=== PATIENT | female | born 1940 | race Caucasian/White ===

== ENCOUNTER 2019-08-06 21:27 | Inpatient (IN) ==
[2019-08-06 21:58] LABS: BASO# 0.01 X1000 (0.0-0.2); BASO% 0.1 % (0.0-0.8); EOS% 1.4 % (0.0-10.0); HEMATOCRIT 44.6 % (37.0-47.0); LYMPH# 1.82 X1000 (1.2-3.4); LYMPH% 25.2 % (20.5-51.1); MCH 30.9 PG (27-31); MCHC 31.4 g/dL (33-37); MCV 98.5 FL (81-99); MONO# 0.73 X1000 (0.11-0.59); MONO% 10.1 % (1.7-9.3); MPV 9.1 FL (7.4-10.4); NEUT# 4.56 X1000 (1.4-6.5); NEUT% 63.2 % (42.2-75.2); PLT 259 X1000 (130-400); RBC 4.53 XMIL (4.2-5.4); RDW 12.1 % (11.5-14.5); WBC 7.22 X1000 (4.8-10.8)
[2019-08-06 22:15] LABS: AGAP 12; ALB/GLOB RATIO 1.3; ALBUMIN 4.4 g/dL (3.5-5.0); ALKALINE PHOSPHATASE 87 U/L (32-104); AMYLASE 68 U/L (20-200); BUN 11 mg/dL (8-22); CALCIUM 10.2 mg/dL (8.8-10.2); CHLORIDE 98 mmol/L (98-107); COSMO 275; CREATININE 0.7 mg/dL (0.5-0.9); ESTIMATED GFR > 60; GLUCOSE 134 mg/dL (70-104); GOT 23 U/L (10-30); GPT 13 U/L (10-36); LIPASE 20 U/L (13-60); POTASSIUM 4.2 mmol/L (3.5-5.1); SODIUM 137 mmol/L (136-145); TCO2 27 mmol/L (25-35); TOTAL BILIRUBIN 0.34 mg/dL (0.20-1.00); TOTAL PROTEIN 7.8 g/dL (6.3-8.3)
[2019-08-06] MEDS ORDERED: NS 1,000 ML IV ONE (22:35)
[2019-08-06] MEDS ORDERED: ZOFRAN IV ONE (22:36)
[2019-08-06] MEDS ORDERED: MORPHINE IV ONE (22:36)
[2019-08-06 23:01] LABS: URINE SOURCE CLEAN CATCH
[2019-08-06 23:19] LABS: BILIRUBIN URINE NEGATIVE (NEGATIVE); BLOOD URINE NEGATIVE (NEGATIVE); COLOR YELLOW; GLUCOSE URINE NEGATIVE (NEGATIVE); KETONE URINE TRACE mg/dL (NEGATIVE); LEUKOCYTES URINE MODERATE (NEGATIVE); NITRITE URINE POSITIVE (NEGATIVE); PH URINE 7.5; PROTEIN URINE NEGATIVE (NEGATIVE); SP GRAVITY URINE 1.012; TURBIDITY URINE HAZY (CLEAR); UR EPITHELIAL CELLS <10 /HPF (<10); URINE BACTERIA 4+ /HPF; URINE RBC <10 /HPF (<10); URINE WBC <10 /HPF (<10); UROBILINOGEN URINE NORMAL (NORMAL)
[2019-08-07] MEDS ORDERED: MORPHINE IV ONE (00:59)
--- NOTE | 2019-08-07 01:25 | PROVIDER DOCUMENTATION ---
This chart was entered by Sophia Antonio Scribe, acting as scribe for Justin Bower MD. HPI-Abdominal Pain/GI Problem - General Chief Complaint: Abdominal Pain Stated Complaint: NAUSEATED, POSS DEHYDRATION Time Seen by Provider: 08/06/19 22:15 Source: patient Allergies/Adverse Reactions: Patient Allergies Allergy/AdvReac Type Severity Reaction Status Date / Time No Known Allergies Allergy Verified 08/07/19 00:14 Home Medications: Home Medication List Medication Instructions Recorded Confirmed Last Taken Type NK [No Home Medications] 08/07/19 08/07/19 Unknown History - History of Present Illness-ABD Nature of Presenting Problems: 78 yowf presents w/daughter w/cc nausea, abd pain and constipation starting today. pt daughter believes pt is dehydrated. pt has ilestomy and sts has pain around it. denies fever, chills and diarrhea. pt has no allergies. took tylenol at 1530. Abdominal Pain Onset Location: reports: generalized abdomen Pain Radiation: reports: no radiation Severity in ED: reports: mild Onset/Duration: reports: other (today) Timing: reports: still present Activities at Onset: reports: none Review of Systems - Adult - REVIEW OF SYSTEMS - ADULT Constitutional: reports: no symptoms reported. denies: chills, fever, fatique Eyes: reports: no symptoms reported Ears, Nose, Mouth & Throat: reports: no symptoms reported Cardiovascular: reports: no symptoms reported Respiratory: reports: no symptoms reported Gastrointestinal: reports: see HPI, abdominal pain, constipation, nausea. denies: diarrhea, rectal bleeding, vomiting Genitourinary: reports: no symptoms reported Musculoskeletal: reports: no symptoms reported Integumentary: reports: no symptoms reported Neurological: reports: no symptoms reported Psychiatric: reports: no symptoms reported Endocrine: reports: no symptoms reported Hematologic/Lymphatic: reports: no symptoms reported Allergic/Immunologic: reports: no symptoms reported All Other Systems: Reviewed and Negative Past History - Adult - PAST MEDICAL HISTORY-ADULT Review of Records: reports: Nursing Assessment Review, Medications Reviewed, Social history reviewed & non-contributory. Major Childhood Illnesses: reports: denies history Cardiovascular: reports: denies history Respiratory: reports: denies history Gastrointestinal: reports: denies history Obstetrical/Gynecological: reports: denies history Genitourinary: reports: cancer Musculoskeletal: reports: denies history Neurological: reports: denies history Psychiatric: reports: denies history Endocrine/Immune: reports: denies history Other Conditions: reports: denies history - PRIOR SURGERIES/PROCEDURES Surgical/Procedure History: reports: BTL, tonsillectomy, other (bladder sling) - IMMUNIZATION STATUS Childhood Immunizations: See Nurse Assessment Flu Vaccine: See Nurse Assessment - FAMILY HISTORY Family History: reviewed, not pertinent - SOCIAL HISTORY Smoking: non-smoker Substance Use: none/never Physical Exam-General - PHYSICAL EXAM-ADULT Initial Vital Signs Reviewed: Yes - CONSTITUTIONAL General Appearance: appears well, alert, no apparent distress - EYES Eyes: PERRL/EOMI, pink conjunctivae - HEAD, EARS, NOSE, MOUTH & THROAT HENMT: normocephalic/atraumatic, moist mucous membranes, normal ENT inspection - NECK Neck: non-tender, full range of motion, supple, normal inspection - RESPIRATORY Respiratory: chest non-tender, lungs clear, normal breath sounds - CARDIOVASCULAR Cardiovascular: normal peripheral pulses, regular rate, rhythm - GASTROINTESTINAL (ABDOMEN) Abdominal Exam: normal bowel sounds, soft, no organomegaly, no pulsatile mass, tenderness (general abd to palp). negative: non tender, guarding, rigid, rebound - LYMPHATIC Lymphatic: no adenopathy - MUSCULOSKELETAL Back Exam: normal inspection, no CVA tenderness, no vertebral tenderness Extremity: normal range of motion, non-tender, normal inspection Peripheral Pulses: radial (R): 2+, radial (L): 2+ - SKIN Integumentary: normal color, normal turgor, warm/dry - NEUROLOGIC Neurologic: grossly normal, no motor/sensory deficits - PSYCHIATRIC Psych/Mental Status: normal mood/affect, normal thought content, normal thought process, oriented x 3 Progress - PLAN OF CARE/RESULTS Progress/Plan/Lab Results: Vital Signs - 8 hr 08/06/19 21:36 Temperature 97.5 F L Pulse Rate 88 Respiratory Rate 18 Blood Pressure 160/81 O2 Sat by Pulse Oximetry 98 Laboratory Results - last 24 hr 08/06/19 08/06/19 21:45 21:45 WBC 7.22 RBC 4.53 Hgb 14.0 Hct 44.6 MCV 98.5 MCH 30.9 MCHC 31.4 L RDW Std Deviation 12.1 Plt Count 259 MPV 9.1 Immature Gran % (Auto) 0.0 Neut % (Auto) 63.2 Lymph % (Auto) 25.2 [place] % (Auto) 10.1 H Eos % (Auto) 1.4 Baso % (Auto) 0.1 Immature Gran # (Auto) 0.00 Neut # (Auto) 4.56 Lymph # (Auto) 1.82 [place] # (Auto) 0.73 H Eos # (Auto) 0.10 Baso # (Auto) 0.01 Sodium 137 Potassium 4.2 Chloride 98 Carbon Dioxide 27 Anion Gap 12 BUN 11 Creatinine 0.7 Estimated GFR/1.73 m2 > 60 BUN/Creatinine Ratio 16 Glucose 134 H Calculated Osmolality 275 Calcium 10.2 Total Bilirubin 0.34 AST 23 ALT 13 Alkaline Phosphatase 87 Total Protein 7.8 Albumin 4.4 Globulin 3.4 Albumin/Globulin Ratio 1.3 Amylase 68 Lipase 20 Orders Category Date Time Status NPO Diet 08/06/19 21:[address] ABD/PELVIS W/IV CONT ONLY [CT] Stat Exams 08/06/19 22:35 Ordered AMYLASE [CHEM] Stat Lab 08/06/19 21:45 Completed CBC WITH ELECTRONIC DIFF [HEME] Stat Lab 08/06/19 21:45 Completed CBC WITH ELECTRONIC DIFF [HEME] Stat Lab 08/06/19 22:46 Ordered COMPREHENSIVE METABOLIC PANEL [CHEM] Stat Lab 08/06/19 21:45 Completed COMPREHENSIVE METABOLIC PANEL [CHEM] Stat Lab 08/06/19 22:46 Ordered LIPASE [CHEM] Stat Lab 08/06/19 21:45 Completed LIPASE [CHEM] Stat Lab 08/06/19 22:46 Ordered URINALYSIS W/POSS RFLX CULT [URINALYSIS] Stat Lab 08/06/19 22:46 Ordered 0.9% Sodium Chloride Inj [Ns] 1,000 ml Med 08/06/19 22:35 Active IV 999 mls/hr Morphine Med 08/06/19 22:36 Discontinued 2 mg IV NOW ONE Ondansetron [Zofran] Med 08/06/19 22:36 Discontinued 4 mg IV NOW ONE Proceed to admit inpatient for moderate mechanical small bowel obstruction. Spoke to general surgery Dr. Herrera and noted enteric anastomosis in the right lower quadrant causing a SBO. No indication for NG tube at this time. Given IV fluids and pain medication. Result Diagrams: 08/06/19 21:45 08/06/19 21:45 - CT/MRI 1 CT Study: Abdomen Impression: See EMR Report (Impression per [facility]: 1. Resection of the urinary bladder with satisfactory appearance of right lower quadrant ileal conduit, mild ureteral fullness in hydronephrosis. 2. Enteric anastomosis right lower quadrant creating a moderate mechanical small bowel obstruction 3. No free air. Trace pelvic fluid. 4. Moderate sized hiatal hernia 5. Increased edema and fluid within the right abdomen stoma site may reflect inflammation.) - CONSULTS/PCP/HOSPITALIST Notification #1 *Consult/PCP/Hospitalist*: Dr. palmer Time Discussed: 01:04 Consult Disposition: Admit Departure - Departure Date of Disposition Decision: 08/07/19 Time of Disposition Decision: 01:18 DIAGNOSIS: Small bowel obstruction Disposition: ADMITTED INPATIENT 09 Certified Medical Emergency: Emergent Condition: Good Referrals and Follow-Ups: Jas Deshpande MD [Primary Care Provider] - - Critical Care Note This patient required my direct & personal management of CC.: No Attestation - Physician/ MATTHEW Attestation Patient care was provided by Advanced Practice Provider:: No The physician spent face to face time with patient:: Yes Advanced Practice Provider documentation review:: Supervising physician onsite and consulted in the evaluation and care of this patient. The physician did have a face to face encounter with the patient. This chart was documented by the indicated scribe, (Sophia Antonio Scribe) and accurately reflects the services I performed and decisions made by me, Justin Dunlap MD, as attested by the provider's signature.
--- NOTE | 2019-08-07 02:41 | HISTORY AND PHYSICAL ---
PRIMARY CARE PHYSICIAN: Dr. Jas Deshpande. CHIEF COMPLAINT: Abdominal pain and nausea x1 day. HISTORY OF PRESENTING ILLNESS: An 78-year-old elderly female with a history of bladder cancer and GERD who had presented to emergency department 1-day history of having worsening abdominal pain and nausea. Patient states that the pain was severe. She rated it about 8/10 and states that she could not tolerate it. She was evaluated in the emergency department. She had imaging done which did show a small bowel obstruction. Her case was discussed with General Surgery who recommended the patient be admitted for further evaluation and management. At the time of my examination, patient denied any headache, fever, chills, chest pain, shortness of breath, hemoptysis or any weight changes, but complained of abdominal pain and nausea. PAST MEDICAL HISTORY: Includes bladder cancer, GERD. PAST SURGICAL HISTORY: Bladder resection, ileostomy, hernia repair, bladder sling. ALLERGIES: No known drug allergies. CURRENT MEDICATIONS: She does not recall and nursing staff will reconcile. SOCIAL HISTORY: No history of smoking, alcohol or illicit drug use. FAMILY HISTORY: No history of coronary artery disease. REVIEW OF SYSTEMS: Fourteen point review of systems as listed in HPI. Other systems negative. PHYSICAL EXAMINATION: GENERAL: Cooperative, friendly female. She is resting comfortably now. VITAL SIGNS: Temperature 98.6 degrees, pulse 80 respirations 16, blood pressure 148/86. HEENT: Atraumatic, normocephalic. Extraocular movements intact. PERRLA. NECK: No masses. CHEST: Clear to auscultation. CARDIOVASCULAR: Regular rate and rhythm. ABDOMEN: Soft. Some mild tenderness. Ileostomy in place. GENITOURINARY: No bladder distention. SKIN: Warm. NEUROLOGIC: Nonfocal. LABORATORIES AND STUDIES: Sodium 137, potassium 4.2, chloride 98, CO2 is 27, BUN is 11, creatinine 0.7, glucose is 134. UA is nitrite positive. WBC 7.22, hemoglobin 14.0, hematocrit 44.6, platelets 259,000. ASSESSMENT: This is an 78-year-old elderly female with a history of bladder cancer and gastroesophageal reflux disease who had presented to emergency department with a 1-day history of having worsening abdominal pain and nausea. She was evaluated in the emergency department. She had imaging done which did show a small bowel obstruction. Subsequently, she will need admission for further management. 1. Small bowel obstruction. 2. Gastroesophageal reflux disease. 3. Suspected urinary tract infection. PLAN: 1. We will admit patient to medical floor with telemetry. 2. Continue keeping patient NPO and given adequate pain control, antiemetics and gentle hydration. 3. General Surgery was consulted already. 4. Continue with PPI. 5. We will start patient on empiric antibiotics. 6. Put patient on DVT prophylaxis with SCDs. 7. We will continue to follow, and reassess and make further recommendation based on patient's clinical course. cc: Ollie Carmona MD
[2019-08-07] MEDS ORDERED: ROCEPHIN 1 GM in NS 50 ML IV SCH (05:29)
[2019-08-07] MEDS ORDERED: ZOFRAN IV PRN (05:29)
[2019-08-07] MEDS: MORPHINE IV PRN ×2 (06:17→11:30)
[2019-08-07] MEDS: NS 1,000 ML IV SCH ×2 (06:24→17:22)
--- NOTE | 2019-08-07 07:43 | Diag Imaging Result Doc PS360 ---
EXAM: CT ABD/PELVIS W/IV CONT ONLY INDICATION: abdominal tenderness s/p ileostomy TECHNIQUE: This exam was performed using automated exposure control, adjustment of mA or kV according to patient size, and/or use of iterative reconstruction technique. COMPARISON: 07/05/2019 FINDINGS: There are mild fibrotic changes at the lung bases. The liver, gallbladder, spleen, pancreas, and adrenal glands are essentially unremarkable. There has been a prior cystectomy and ileal conduit there is stable herniation of mesenteric fat around the urostomy. This fat appears mildly edematous. No herniated bowel is identified. The urostomy appears to be patent. There is very slight prominence of the ureters and collecting systems bilaterally that is essentially unchanged and is likely chronic. There is a right lower quadrant bowel anastomosis. There are multiple loops of small bowel that are moderately distended with fluid and gas. This is suspicious for obstruction. The transition point could be near the surgical anastomosis. There is a loop of small bowel in the low pelvis on the left that exhibits mild wall thickening. This is another potential transition point. The cystic lesion seen in the pelvis on the left on the previous study now appears to actually represent a loop of bowel. There is a stable moderate-sized hiatal hernia. The remainder of the GI tract is essentially unremarkable. There is diffuse mesenteric edema and there is a small volume of fluid layering in the pelvis and between loops of bowel. Nonspecific mild mesenteric lymphadenopathy is approximately stable. IMPRESSION: 1.Findings suspicious for small bowel obstruction with possible transition points adjacent to the surgical anastomosis in the right lower quadrant and in the low pelvis on the left. Please see above discussion. 2.Mesenteric edema and small volume ascites. 3.Other incidental/nonacute findings detailed above. Electronically signed by Carmelo Antonio 08/07/2019 7:40 AM
--- NOTE | 2019-08-07 09:38 | GENERAL SURGERY CONSULTATION ---
DATE: 08/07/2019 REASON FOR CONSULTATION: Small-bowel obstruction. REQUESTING PHYSICIAN: Dr. Ollie Carmona. HISTORY OF PRESENT ILLNESS: This is an 78-year-old female who presents with a 1-day history of crampy generalized abdominal pain with nausea. Her last bowel movement was yesterday. However, she does suffer from chronic constipation. No exacerbating or relieving factors. No fever, chills, or vomiting. She had a radical cystectomy with ileal conduit last September at [place] for bladder cancer. PAST MEDICAL HISTORY: Bladder cancer, gastroesophageal reflux disease. PAST SURGICAL HISTORY: 1. Radical cystectomy with ileal conduit. 2. Bladder lift. 3. Left inguinal hernia. 4. Bilateral tubal ligation. ALLERGIES: No known drug allergies. HOME MEDICATIONS: Naltrexone. FAMILY HISTORY: Reviewed and noncontributory. SOCIAL HISTORY: Negative for tobacco, alcohol, or illicit drug use. REVIEW OF SYSTEMS: Ten systems were reviewed and negative, except as noted above. PHYSICAL EXAMINATION: Vital Signs: Temperature 98.2 degrees, pulse 78, respirations 18, blood pressure 124/64, O2 saturation 96%. General: Well-developed, elderly female, who looks her stated age in no acute distress. HEENT: Normocephalic, atraumatic. Extraocular muscles intact. Pupils equal, round, reactive to light. Sclerae anicteric. Moist mucous membranes. Hearing grossly normal. No oral lesions. Neck: Supple. No thyromegaly. CV: Regular rate and rhythm. Respiratory: Bilateral equal breath sounds. No work of breathing. GI: Soft. Minimal distention. Hypoactive bowel sounds. Mild tenderness throughout. No rebound or guarding. No organomegaly or mass. She has a right lower quadrant ileal conduit. There is some fullness around it, which may be related to hernia. She has a well-healed lower midline incision. Extremities: No clubbing, cyanosis, or edema. Skin: Warm and dry. No rash. Musculoskeletal: Moves all extremities equally and well. LABORATORY DATA: CBC and metabolic profile were reviewed and unremarkable. Amylase and lipase normal. Liver function tests normal. Urinalysis was positive for nitrite and 4+ bacteria. IMAGING: Abdominal pelvis CT scan showed multiple loops of dilated small bowel with fluid and gas, with a possible transition point near a surgical anastomosis. There is a stable, moderate- sized hiatal hernia, a patent-appearing urostomy. There is stable herniation of mesenteric fat around the urostomy, but no small bowel loops. ASSESSMENT AND PLAN: An 78-year-old female with small-bowel obstruction, likely related to adhesions versus recurrent or progressive cancer. She does not have an acute abdomen. We will treat her conservatively initially. We will start her on ice chips, milk of magnesia, and mineral oil. I will recheck physical exam and imaging. If she fails to improve or worsens, then she will require exploration. cc: Srinivas Herrera MD
[2019-08-07] MEDS: MINERAL OIL PO SCH ×2 (10:28→22:45)
[2019-08-07] MEDS: MILK OF MAGNESIA PO SCH ×2 (10:28→22:45)
[2019-08-07] MEDS: TYLENOL PO PRN (17:21)
--- NOTE | 2019-08-07 18:01 | PROGRESS NOTE ---
DATE: 08/07/2019 INTERVAL HISTORY: Ms. Novak was admitted for suspected small-bowel obstruction. Since then, she continues to have some abdominal cramps and nausea. She has not had any vomiting. At bedside, her daughter is there. She denies any chest pain, shortness of breath or cough. No vomiting. She has periumbilical abdominal pain. We discussed about pathogenesis of small bowel obstruction about 60% to 70% success rate of nonoperative management. I answered all of their questions. We also discussed about her headache. VITALS: Temperature 98.6 degrees, pulse 84, respiratory rate 18, blood pressure 145/71. She is saturating 93% on room air. PHYSICAL EXAMINATION: General: Does not appear in acute distress. HEENT: Oral cavity is moist. No pallor, cyanosis, clubbing or icterus. Respiratory: Bilateral air equal. No wheeze, rhonchi, crackles. Cardiovascular: S1, S2 normal. No murmur, rub or gallop. Abdomen: Soft, mildly distended in lower abdominal part. She has right lower quadrant ileostomy or ileal conduit. She had tenderness in periumbilical region without guarding or rigidity. Active bowel sounds. Extremities: Superficial venous dilatation of lower extremities. She is alert and oriented x3, nonfocal. LABORATORY DATA: Suggestive of normal CBC and normal BMP. She did have moderate leukocytes on the urine dipstick analysis, but urine WBCs were less than 10 and did not have leukocytosis, so I will stop the intravenous antibiotics at the moment. IMAGING: CT scan reviewed. ASSESSMENT AND PLAN: 1. Acute small bowel obstruction with prior history of bladder resection and ileal conduit formation. Continue nonoperative management with intravenous fluids, intravenous morphine and intravenous ondansetron as needed. She does not have leukocytosis, tachycardia to suggest any bowel wall necrosis or ischemia. I will get lactate as well. Surgical team on board. A follow-up abdominal x-ray has been ordered for tomorrow. 2. Urinary bladder cancer diagnosed in 2018 status post cystectomy and ileal conduit in September 2018. 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 She is following oncologist, Dr. Platt, and is supposedly on immunotherapy, the details of which are unclear. She should get outpatient oncology follow-up. 3. Others: Continue as acetaminophen for headache and lidocaine patch for back pain. DISPOSITION: I will control to monitor patient inside the hospital. Plan of care discussed with her and her daughter at bedside. Their questions have been answered. cc: Kaushik Pisano MD
[2019-08-07] MEDS: DULCOLAX PR SCH ×2 (18:51→22:45)
[2019-08-07] MEDS: LIDODERM TOP SCH (18:51)
[2019-08-07] MEDS: SYSTANE EYE DROPS BOTH EYES SCH (22:45)
[2019-08-08] MEDS: TYLENOL PO PRN ×3 (03:58→22:06)
[2019-08-08 06:03] LABS: BASO# 0.01 X1000 (0.0-0.2); BASO% 0.2 % (0.0-0.8); EOS# 0.16 X1000 (0.0-0.7); EOS% 3.1 % (0.0-10.0); HEMATOCRIT 38.8 % (37.0-47.0); LYMPH# 1.55 X1000 (1.2-3.4); LYMPH% 29.6 % (20.5-51.1); MCH 30.8 PG (27-31); MCHC 30.9 g/dL (33-37); MCV 99.7 FL (81-99); MONO# 0.82 X1000 (0.11-0.59); MONO% 15.6 % (1.7-9.3); MPV 9.1 FL (7.4-10.4); NEUT% 51.5 % (42.2-75.2); PLT 207 X1000 (130-400); RBC 3.89 XMIL (4.2-5.4); RDW 12.2 % (11.5-14.5); WBC 5.24 X1000 (4.8-10.8)
[2019-08-08 06:32] LABS: AGAP 9; BUN 7 mg/dL (8-22); CALCIUM 9.1 mg/dL (8.8-10.2); CHLORIDE 104 mmol/L (98-107); COSMO 280; CREATININE 0.5 mg/dL (0.5-0.9); ESTIMATED GFR > 60; GLUCOSE 106 mg/dL (70-104); POTASSIUM 4.1 mmol/L (3.5-5.1); SODIUM 141 mmol/L (136-145); TCO2 28 mmol/L (25-35)
--- NOTE | 2019-08-08 08:29 | Diag Imaging Result Doc PS360 ---
EXAM: ABDOMEN FLAT/UPRIGHT 08/08/2019 HISTORY: sbo TECHNIQUE: Flat and upright abdomen COMMENT: There is a distended small bowel loop in the lower mid left abdomen. Some colonic gas is present without evidence of dilatation. The stomach is not distended. There is no evidence organomegaly or mass. There are multiple surgical clips in the pelvis as well as phleboliths. There are granulomata in the spleen. IMPRESSION: Partial small bowel obstruction and/or ileus. Electronically signed by Riogberto Bhakta 08/08/2019 8:27 AM
--- NOTE | 2019-08-08 11:05 | Diag Imaging Result Doc PS360 ---
SMALL BOWEL SERIES ONLY - 08/08/2019 INDICATION: sbo TECHNIQUE: COMPARISON: X-rays from 08/08/2019, CT from 08/06/2019 FINDINGS: The patient successfully drank contrast. Normal contrast passage. Contrast reached the proximal colon within 60 minutes. There are some somewhat persistently distended small bowel loops mainly in the left lower quadrant as were seen on prior exams. However there is no transition point and certainly no delay in contrast passage. There is a normal appendix which fills with contrast. No evidence of leak. There is a small to moderate hiatal hernia. IMPRESSION: Indeterminate slightly abnormally dilated small bowel loops mainly in the left lower quadrant. No obstruction. Electronically signed by Guillermo Espinoza 08/08/2019 11:03 AM
[2019-08-08] MEDS: MINERAL OIL PO SCH ×2 (11:24→23:36)
[2019-08-08] MEDS: SYSTANE EYE DROPS BOTH EYES SCH (11:24)
[2019-08-08] MEDS: MILK OF MAGNESIA PO SCH ×2 (11:24→23:36)
[2019-08-08] MEDS: DULCOLAX PR SCH ×3 (11:24→23:36)
[2019-08-08] MEDS: LIDODERM TOP SCH (11:26)
--- NOTE | 2019-08-08 14:48 | GENERAL SURGERY PROGRESS NOTE ---
DATE: 08/08/2019 SUBJECTIVE: The patient feels better. Less pain. No nausea or vomiting. She has had some flatus and bowel movement. OBJECTIVE: Vital Signs: She is afebrile. Vital signs are stable. General: She is awake, alert, oriented x3. No acute distress. GI: Soft, nontender, nondistended. IMAGING: Her abdominal flat and upright x-ray this morning shows a distended small bowel loop in the left lower abdomen. Her small bowel follow-through series showed contrast reaching the colon in 60 minutes, with some persistently distended small bowel loops in the left lower quadrant, without transition point and without delay in contrast passage. LABORATORY DATA: Reviewed and unremarkable. ASSESSMENT AND PLAN: An 78-year-old female with partial small-bowel obstruction, which is improving. We will start her on a clear liquid diet and advance as tolerated. Possible discharge tomorrow pending her clinical course. cc: Srinivas Herrera MD
--- NOTE | 2019-08-08 16:28 | PROGRESS NOTE ---
DATE: 08/08/2019 SUBJECTIVE: The patient seems to be better. It looks like she is having some bowel movements now. She has been placed on a liquid diet. Her abdomen is soft, and she does have some bowel sounds, right lower quadrant ileostomy. She does have some tenderness but apparently is better. OBJECTIVE: Vital Signs: Temperature 97.6 degrees, pulse 77, respiratory rate 16, blood pressure 149/70, oxygen saturation 96 on room air. HEENT: Head normocephalic. No trauma, PERRLA. Neck: Supple. No JVD. No masses. Central trachea. Chest: Clear to auscultation. No wheezing. No rales. Abdomen: Soft. She does have a right lower quadrant ileostomy. It looks like she has been having bowel movements. She is complaining of minimal abdominal discomfort. The abdomen is a little bit distended though, but she does have some bowel sounds. Extremities: No edema, no clubbing, no cyanosis. Neurological: The patient is alert. She is oriented x3. No focal deficits. LABORATORY: WBC 5.2, hemoglobin 12, hematocrit 38.8, platelets 207,000. Sodium 141, potassium 4.1, chloride 104, bicarbonate 28, BUN 7, creatinine 0.5, glucose 106, calcium 9.1. ASSESSMENT AND PLAN: 1. Small bowel obstruction with prior history of bladder resection and ileal conduit formation. I believe the small-bowel obstruction is resolving. We will continue with the same management. She is tolerating p.o. She is having some bowel movements. Cardiology department on board. We will continue with the same treatment. 2. Urinary bladder cancer diagnosed in 2018, status post cystectomy and ileal conduit in September 2018. Apparently she has some metastatic disease to the spine and intra-abdominal lymph node. She follows Dr. Platt. If she does not get better by tomorrow, probably I will need to get Dr. Platt to see the patient. 3. Back pain. Continue with same management. cc: Isiah Cramer MD
[2019-08-09] MEDS: SYSTANE EYE DROPS BOTH EYES SCH ×3 (07:00→21:53)
[2019-08-09 07:18] LABS: BASO# 0.01 X1000 (0.0-0.2); BASO% 0.2 % (0.0-0.8); EOS# 0.12 X1000 (0.0-0.7); EOS% 2.3 % (0.0-10.0); HEMATOCRIT 41.7 % (37.0-47.0); LYMPH# 1.76 X1000 (1.2-3.4); LYMPH% 34.2 % (20.5-51.1); MCHC 31.2 g/dL (33-37); MCV 99.5 FL (81-99); MONO# 0.68 X1000 (0.11-0.59); MONO% 13.2 % (1.7-9.3); MPV 9.5 FL (7.4-10.4); NEUT# 2.58 X1000 (1.4-6.5); NEUT% 50.1 % (42.2-75.2); PLT 241 X1000 (130-400); RBC 4.19 XMIL (4.2-5.4); WBC 5.15 X1000 (4.8-10.8)
[2019-08-09 07:55] LABS: AGAP 12; BUN 5 mg/dL (8-22); CHLORIDE 105 mmol/L (98-107); COSMO 280; CREATININE 0.6 mg/dL (0.5-0.9); ESTIMATED GFR > 60; GLUCOSE 95 mg/dL (70-104); POTASSIUM 4.4 mmol/L (3.5-5.1); SODIUM 142 mmol/L (136-145); TCO2 25 mmol/L (25-35)
[2019-08-09] MEDS: MILK OF MAGNESIA PO SCH ×2 (08:57→21:53)
[2019-08-09] MEDS: MINERAL OIL PO SCH ×2 (08:57→21:53)
[2019-08-09] MEDS: DULCOLAX PR SCH ×2 (08:57→21:54)
[2019-08-09] MEDS: TYLENOL PO PRN ×2 (08:58→21:53)
--- NOTE | 2019-08-09 11:34 | Diag Imaging Result Doc PS360 ---
EXAM: FLAT/UPRIGHT ABD/1 VIEW CHEST HISTORY: sbo TECHNIQUE: Flat and upright with chest three views COMPARISON: 08/08/2019 FINDINGS: The lungs are well expanded. No cardiomegaly. No pneumonia. No free air beneath the diaphragm. There is contrast throughout the colon. There continues to be air fluid levels and mildly distended small bowel loops in the lower abdomen. No organomegaly. There are multiple pelvic phleboliths as well as pelvic surgical clips and sutures. Moderate degenerative changes in the lumbar spine. IMPRESSION: Persistent mildly dilated small bowel loops, but no complete obstruction. Electronically signed by Sammy Boswell 08/09/2019 11:32 AM
--- NOTE | 2019-08-09 12:02 | GENERAL SURGERY PROGRESS NOTE ---
DATE: 08/09/2019 SUBJECTIVE: The patient feels better. She denies significant pain. No nausea or vomiting. She is tolerating clear liquids. She has passed gas several times as well as had a good bowel movement. OBJECTIVE: Vital signs: She is afebrile. Vital signs are stable. General: She is awake, alert, oriented x3. No acute distress. Gastrointestinal: Soft, nontender, nondistended. Good bowel sounds. IMAGING: Pending. ASSESSMENT AND PLAN: An 78-year-old female with partial small-bowel obstruction that appears to be improved. We will advance her diet to a soft diet and recheck her x-ray. I anticipate if she tolerates the diet, then she can go home later this afternoon. cc: Srinivas Herrera MD
[2019-08-09] MEDS: NS 1,000 ML IV SCH (12:48)
--- NOTE | 2019-08-09 14:04 | PROGRESS NOTE ---
DATE: 08/09/2019 SUBJECTIVE: The patient seems to be getting better. She is having some bowel movements. Her diet has been advanced. Surgery Department following this patient closely, hopefully this patient can be discharged in the next 24 hours. OBJECTIVE: Vital Signs: Temperature 98.1 degrees, pulse 67, respiratory rate 15, blood pressure 140/67, oxygen saturation 97% on room air. HEENT: Head normocephalic, no trauma, PERRLA. Neck: Supple. No JVD. No masses. Central trachea. Chest: Clear to auscultation. No wheezing. No rales. Abdomen: Soft. She does have a right lower quadrant ileostomy, looks like she has been having bowel movements. She is complaining of minimal abdominal discomfort. The abdomen is a little bit sore. She does have some bowel sounds. Extremities: No edema, no clubbing, no cyanosis. Neurological: The patient is alert and oriented x3. No focal deficits. LABORATORY: WBC 5.1, hemoglobin 13, hematocrit 41.7, platelets 241,000. Sodium 142, potassium 4.4, chloride 105, bicarbonate 25, BUN 5, creatinine 0.6, glucose 95, calcium 9. ASSESSMENT AND PLAN: 1. Small bowel obstruction with prior history of bladder resection and ileal conduit formation. I believe the small bowel obstruction is resolving. We will continue with same management. She is tolerating p.o. and the diet has been advanced. I will wait for surgery department to clear this patient so she can go home. 2. 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 Platt. 3. Back pain. Continue with same management. cc: Isiah Cramer MD
[2019-08-09] MEDS: LIDODERM TOP SCH (19:35)
--- NOTE | 2019-08-10 06:05 | GENERAL SURGERY PROGRESS NOTE ---
DATE: 08/10/2019 SUBJECTIVE: The patient is doing well. She denies abdominal pain, nausea or vomiting. She has had a bowel movement and passed gas. She is tolerating a diet. OBJECTIVE: Vital Signs: She is afebrile. Vital signs are stable. General: She is awake, alert, and oriented x3. No acute distress. Gastrointestinal: Soft, nontender, nondistended. She has good bowel sounds. ASSESSMENT AND PLAN: An 78-year-old female with partial small bowel obstruction now resolved. I recommend discharge home and follow up with Dr. Platt. cc: Srinivas Herrera MD
[2019-08-10 11:10] VITALS: BP 137/76
--- NOTE | 2019-08-10 22:06 | DISCHARGE SUMMARY ---
ADMISSION DATE: 08/07/2019 DISCHARGE DATE: 08/10/2019 DISCHARGE DIAGNOSES: 1. Small-bowel obstruction with prior history of bladder resection and ileal conduit formation. 2. Urinary bladder cancer diagnosed in 2018, status post cystectomy and ileal conduit in September 2018. 3. Back pain. CONSULTS: Surgery Department, Dr. Herrera. PROCEDURES PERFORMED: 1. Abdomen and pelvis CT scan dated 08/06/2019. Impression: Findings suspicious for small-bowel obstruction with possible transition point adjacent to the surgical anastomosis in the right lower quadrant and in the low pelvis of the left, mesenteric edema and small bowel ascites. 2. Abdominal x-ray dated 08/08/2019. Impression: Partial small-bowel obstruction and/or ileus. 3. Small-bowel series dated 08/08/2019. Impression: Indeterminate slightly abnormally dilated small bowel loops, mainly in the left lower quadrant, but no obstruction. 4. Abdomen x-ray dated 08/09/2019. Persistent mildly dilated small bowel loops, but no complete obstruction. HOSPITAL COURSE: An 78-year-old, female with a past medical history of bladder cancer and GERD, who presented to the emergency department with 1-day history of having worsening abdominal pain and nausea. She was admitted on 08/07/2019. As per the patient, the pain was severe, about 8/10. Images showed small-bowel obstruction. Case has been discussed with General surgery who recommended to admit the patient for evaluation. At the moment of the admitting physician's evaluation, the patient denied any headache, fever, chills, chest pain, shortness of breath, hemoptysis or weight changes, but she was complaining of abdominal pain and nausea. She has a history of bladder cancer with a bladder resection and ileal conduit formation. We monitored this patient. She was placed on IV fluids and she started having some bowel movements, and she was getting better on a daily basis. She started having some bowel movement. She started to tolerate p.o. to the point that today she is basically back to her baseline. She is having bowel movements. She is tolerating p.o. Surgery department evaluated this patient and they have recommended to discharge this patient with follow up with Dr. Platt. So, we went ahead and discharge this patient home. We discussed about her diet and her followups. PHYSICAL EXAMINATION: Vital signs: Temperature 98.3 degrees, pulse 91, respiratory rate 14, blood pressure 137/76, oxygen saturation 98 on room air. HEENT: Head normocephalic, no trauma. PERRLA. Neck: Supple. No JVD. No masses. Central trachea. Chest: Clear to auscultation. No wheezing. No rales. Abdomen: Soft. She does have a right lower quadrant ileostomy. Looks like she has been passing bowel movements. She is not complaining of abdominal discomfort, just a little bit of soreness. Abdomen: Soft. Positive bowel sounds. Extremities: No edema. No clubbing. No cyanosis. Neurological: The patient is alert. She is oriented x3. No focal deficits. LABORATORY: No lab work done today. Laboratory done from yesterday: WBC 5.1, hemoglobin 13, hematocrit 41.7, platelets 241,000. Sodium 142, potassium 4.4, chloride 105, bicarbonate 25, BUN 5, creatinine 0.6, glucose 95, calcium 9. DISCHARGE MEDICATIONS: Acetaminophen 650 mg p.o. q.6 hours as needed for fever or pain, mineral oil 30 mL p.o. b.i.d., [*]50 mg p.o. at bedtime, Systane eyedrops b.i.d. TIME SPENT: Time discharging this patient 30 minutes. cc: Isiah Cramer MD
== END 2019-08-10 12:28 | disposition home or self-care (01) | DRG 389 ==
LOC: ED 21:27 → SUATTDRO 08-07 04:46 → 4N 08-07 04:46
PROVIDERS: ATTEND Internal Medicine

== ENCOUNTER 2019-08-13 02:46 | Inpatient (IN) ==
--- NOTE | 2019-08-13 03:27 | PROVIDER DOCUMENTATION ---
HPI-Abdominal Pain/GI Problem - General Chief Complaint: Abdominal Pain Stated Complaint: BACK PAIN,NAUSEATED, STOMACH PAIN Time Seen by Provider: 08/13/19 03:08 Source: patient Allergies/Adverse Reactions: Patient Allergies Allergy/AdvReac Type Severity Reaction Status Date / Time No Known Allergies Allergy Verified 08/13/19 02:57 Home Medications: Home Medication List Medication Instructions Recorded Confirmed Last Taken Type Naltrexone [Revia] 50 mg PO HS 08/07/19 08/13/19 08/12/19 History Acetaminophen [Tylenol] 650 mg PO Q6H PRN PRN tab 08/10/19 08/13/19 08/12/19 Rx Mineral Oil 30 ml PO BID udc 08/10/19 08/13/19 08/12/19 Rx Propylene Glycol/Peg Oph Soln 1 ea BOTH EYES BID droperette 08/10/19 08/13/19 08/12/19 Rx [Systane Eye Drops] - History of Present Illness-ABD Nature of Presenting Problems: Patient presents to the ED with decreased output in her iliostomy and abdominal pain/bloating. She was recently discharged from the hospital for a small bowel obstruction. Abdominal Pain Onset Location: reports: generalized abdomen Pain Radiation: reports: no radiation Quality of Pain: reports: aching Severity in ED: reports: moderate Onset/Duration: reports: 4-6 hours ago Timing: reports: still present Activities at Onset: reports: none Exposure to sick contacts?: No Modifying Factors: improves with: movement Associated Symptoms: reports: nausea Last BM: this evening Dark Stools Present?: reports: none noticed Rectal Bleeding: reports: none Rectal Pain: reports: none Bruising or Bleeding Gums?: No Similar Symptoms Previously?: Yes Recently seen or treated by another doctor?: Yes Review of Systems - Adult - REVIEW OF SYSTEMS - ADULT Constitutional: reports: no symptoms reported Eyes: reports: no symptoms reported Ears, Nose, Mouth & Throat: reports: no symptoms reported Cardiovascular: reports: no symptoms reported Respiratory: reports: no symptoms reported Gastrointestinal: reports: see HPI Genitourinary: reports: see HPI, hematuria Musculoskeletal: reports: no symptoms reported Integumentary: reports: no symptoms reported Neurological: reports: no symptoms reported Past History - Adult - PAST MEDICAL HISTORY-ADULT Review of Records: reports: Old Records Reviewed, Nursing Assessment Review Major Childhood Illnesses: reports: denies history Cardiovascular: reports: denies history Respiratory: reports: denies history Gastrointestinal: reports: denies history Obstetrical/Gynecological: reports: denies history Genitourinary: reports: cancer Musculoskeletal: reports: denies history Neurological: reports: denies history Psychiatric: reports: denies history Endocrine/Immune: reports: denies history Other Conditions: reports: denies history - PRIOR SURGERIES/PROCEDURES Surgical/Procedure History: reports: BTL, tonsillectomy, other (bladder sling) - IMMUNIZATION STATUS Childhood Immunizations: See Nurse Assessment Flu Vaccine: See Nurse Assessment - FAMILY HISTORY Family History: reviewed, not pertinent Physical Exam-General - PHYSICAL EXAM-ADULT Initial Vital Signs Reviewed: Yes - CONSTITUTIONAL General Appearance: alert, no apparent distress - EYES Eyes: PERRL/EOMI, pink conjunctivae - HEAD, EARS, NOSE, MOUTH & THROAT HENMT: normocephalic/atraumatic, moist mucous membranes, normal ENT inspection, TMs normal, pharynx normal - NECK Neck: non-tender, full range of motion, supple - RESPIRATORY Respiratory: chest non-tender, lungs clear, normal breath sounds - CARDIOVASCULAR Cardiovascular: normal peripheral pulses, regular rate, rhythm, no edema, no gallop, no JVD, no murmur - GASTROINTESTINAL (ABDOMEN) Abdominal Exam: normal bowel sounds, no organomegaly, no pulsatile mass, abnormal bowel sounds, distended, tenderness. negative: abdominal bruit - LYMPHATIC Lymphatic: no adenopathy - MUSCULOSKELETAL Back Exam: normal inspection, no CVA tenderness Extremity: normal range of motion, non-tender - SKIN Integumentary: normal color, normal turgor, warm/dry - NEUROLOGIC Neurologic: grossly normal - PSYCHIATRIC Psych/Mental Status: normal mood/affect, normal thought content Progress - PLAN OF CARE/RESULTS Progress/Plan/Lab Results: Vital Signs - 8 hr 08/13/19 02:51 Temperature 97.8 F Pulse Rate 89 Respiratory Rate 20 Blood Pressure 147/75 O2 Sat by Pulse Oximetry 95 Orders Category Date Time Status CT ABD/PELVIS W/PO AND IV CON [CT] Stat Exams 08/13/19 03:20 Ordered CBC WITH ELECTRONIC DIFF [HEME] Stat Lab 08/13/19 03:19 Uncollected COMPREHENSIVE METABOLIC PANEL [CHEM] Stat Lab 08/13/19 03:19 Ordered Result Diagrams: 08/13/19 03:49 08/13/19 03:49 - CONSULTS/PCP/HOSPITALIST Notification #1 *Consult/PCP/Hospitalist*: Dr Flores Time Discussed: 05:55 Consult Disposition: Will see in ED Departure - Departure Date of Disposition Decision: 08/13/19 Time of Disposition Decision: 05:55 DIAGNOSIS: Small bowel obstruction Disposition: ADMITTED INPATIENT 09 Certified Medical Emergency: Emergent Condition: Stable Referrals and Follow-Ups: Florentin Singh MD [Primary Care Provider] - - Critical Care Note This patient required my direct & personal management of CC.: No Attestation - Physician/ MATTHEW Attestation Patient care was provided by Advanced Practice Provider:: No The physician spent face to face time with patient:: Yes Advanced Practice Provider documentation review:: Supervising physician onsite and consulted in the evaluation and care of this patient. The physician did have a face to face encounter with the patient.
[2019-08-13 03:56] LABS: BASO# 0.01 X1000 (0.0-0.2); BASO% 0.2 % (0.0-0.8); EOS# 0.09 X1000 (0.0-0.7); EOS% 1.5 % (0.0-10.0); HEMATOCRIT 43.9 % (37.0-47.0); HEMOGLOBIN 13.7 g/dL (12.0-16.0); LYMPH# 1.19 X1000 (1.2-3.4); LYMPH% 19.6 % (20.5-51.1); MCH 30.8 PG (27-31); MCHC 31.2 g/dL (33-37); MCV 98.7 FL (81-99); MONO# 0.57 X1000 (0.11-0.59); MONO% 9.4 % (1.7-9.3); MPV 8.8 FL (7.4-10.4); NEUT% 69.3 % (42.2-75.2); PLT 267 X1000 (130-400); RBC 4.45 XMIL (4.2-5.4); RDW 12.2 % (11.5-14.5); WBC 6.06 X1000 (4.8-10.8)
[2019-08-13 04:19] LABS: AGAP 14; ALB/GLOB RATIO 1.4; ALBUMIN 4.4 g/dL (3.5-5.0); ALKALINE PHOSPHATASE 89 U/L (32-104); BUN 10 mg/dL (8-22); CALCIUM 10.1 mg/dL (8.8-10.2); CHLORIDE 101 mmol/L (98-107); COSMO 279; CREATININE 0.5 mg/dL (0.5-0.9); ESTIMATED GFR > 60; GLUCOSE 115 mg/dL (70-104); GOT 28 U/L (10-30); GPT 16 U/L (10-36); POTASSIUM 4.3 mmol/L (3.5-5.1); SODIUM 140 mmol/L (136-145); TCO2 25 mmol/L (25-35); TOTAL BILIRUBIN 0.33 mg/dL (0.20-1.00); TOTAL PROTEIN 7.5 g/dL (6.3-8.3)
[2019-08-13] MEDS ORDERED: ZOFRAN IV ONE (04:46)
[2019-08-13] MEDS ORDERED: NS 1,000 ML IV ONE (04:51)
[2019-08-13] MEDS ORDERED: ZOFRAN ONE (04:53)
[2019-08-13] MEDS ORDERED: PHENERGAN IV ONE (06:10)
[2019-08-13] MEDS ORDERED: SODIUM CHLORIDE 0.9% INJ ONE (06:10)
[2019-08-13 07:40] LABS: URINE SOURCE CATH
[2019-08-13 07:42] LABS: BILIRUBIN URINE NEGATIVE (NEGATIVE); BLOOD URINE NEGATIVE (NEGATIVE); COLOR STRAW; GLUCOSE URINE NEGATIVE (NEGATIVE); KETONE URINE NEGATIVE (NEGATIVE); LEUKOCYTES URINE NEGATIVE (NEGATIVE); NITRITE URINE POSITIVE (NEGATIVE); PH URINE 6.5; PROTEIN URINE NEGATIVE (NEGATIVE); SP GRAVITY URINE 1.022; TURBIDITY URINE CLEAR (CLEAR); UROBILINOGEN URINE NORMAL (NORMAL)
[2019-08-13 07:44] LABS: UR EPITHELIAL CELLS <10 /HPF (<10); URINE BACTERIA NEGATIVE /HPF; URINE RBC <10 /HPF (<10); URINE WBC <10 /HPF (<10)
--- NOTE | 2019-08-13 07:45 | Diag Imaging Result Doc PS360 ---
EXAM: CT ABD/PELVIS W/PO AND IV CON 08/13/2019 HISTORY: abd pain TECHNIQUE: This exam was performed using automated exposure control, adjustment of mA or kV according to patient size, and/or use of iterative reconstruction technique. COMMENT: The current study is compared with the previous examination of 08/06/2019. There are some coarse fibrotic appearing opacities in both lung bases which have not changed significantly since the previous study. There is a large hiatal hernia. There is a calcified granuloma in the right middle lobe. There are calcified granulomata in the spleen. There are no gallstones. There is no evidence of nephrolithiasis. The abdominal aorta is not distended. The mesenteric and renal arteries are patent. The adrenal glands are not enlarged. There is some dilatation of both renal collecting systems. This was also the case at the time the previous study and is probably related to the patient's cystectomy and ileal conduit. There is a fair amount of fluid present in the ileal conduit which would not be unexpected. This is also similar in appearance to the previous examination. The appendix is located directly posterior and above the ileal conduit and is normal in caliber. There is also stable in appearance since the previous study. There are number of prominent retroperitoneal nodes around the inferior vena cava best seen on image 61 between the spine and the vena cava and between the aorta and the vena cava. The vena cava is slightly compressed most notably around image 59 of the venous phase which is slightly worse than on the previous study. There is a left periaortic node on image 70 measuring almost 20 mm in transverse dimension versus 18 at the time the previous study. There is a large node in the common iliac region on the right on image 81 which measures over 2.7 cm. This has not changed significantly in size. There are number of enlarged mesenteric nodes as there were previously. These do not appear to have changed significantly since the previous study. The liver is stable in appearance. The pancreas is also unchanged. There is some stool and gas in the colon without evidence of dilatation. There is oral contrast throughout much of the proximal small bowel. Pelvis: There is fecalization of small bowel contents in the pelvis particularly notable in a loop seen on image 133, which is just proximal to the area of the staple line which was presumably related to formation of the ileal loop conduit. This is likely the level of the obstruction. There is distention of small bowel loops proximal to this. There is a portion of the cecum anteriorly which protrudes into the area of the stoma. There is some free fluid in the pelvis. There is some thickening of the endometrial stripe. There are number of enlarged internal iliac nodes bilaterally. This does not appear to have changed significantly since the previous study. There has been cystectomy. The appearance of the regional skeleton has not changed significantly since the previous study. IMPRESSION: Partial or early small bowel obstruction, which may be related to postsurgical change in the area of the ileal conduit. Slightly worsened retroperitoneal adenopathy. The possibility of a peristomal hernia containing a portion of the cecum is suggested. This may be of no clinical significance. The findings were discussed with Christiano Day M.D. at 08/13/2019 7:25 AM. Electronically signed by Rigoberto Bhakta 08/13/2019 7:42 AM
--- NOTE | 2019-08-13 07:57 | GENERAL SURGERY CONSULTATION ---
DATE: 08/13/2019 REQUESTING PHYSICIAN: Hospitalist Service. REASON FOR CONSULTATION: Bowel obstruction. HISTORY OF PRESENT ILLNESS: An 78-year-old female who was recently discharged on 08/10/2019 for a bowel obstruction, presenting now with similar symptoms. She has a significant past surgical history of having neobladder created with ileal conduit after having bladder cancer surgery at [place]. She is having persistent nausea, vomiting, and pain in the right lower quadrant. She had a CT scan that showed a bowel obstruction. I was asked to weigh an opinion. She is still somewhat uncomfortable. PAST MEDICAL HISTORY: Includes bladder cancer and gastroesophageal reflux disease. PAST SURGICAL HISTORY: Includes previous bladder resection, ileostomy, hernia repair, and previous bladder sling. ALLERGIES: None. CURRENT MEDICATIONS: Reviewed. SOCIAL HISTORY: No alcohol, tobacco, or illicit drugs. FAMILY HISTORY: Reviewed with the patient and noncontributory. REVIEW OF SYSTEMS: Full 14 systems were reviewed and are negative, except as specified in the HPI. PHYSICAL EXAMINATION: Vital Signs: The patient is currently afebrile. Her vital signs are stable. General: No acute distress. HEENT: Normocephalic, atraumatic. Pupils equal, round, reactive to light. Mucous membranes moist. Oropharynx benign. Neck: Supple. Trachea midline. Cardiovascular: Regular rate and rhythm. Lungs: Grossly clear. Abdomen: Soft. Tender to palpation in the right lower quadrant. Ileostomy is in place and functioning. Extremities: Moves all extremities. Neurologic: Grossly intact. Skin: No signs of jaundice. Vascular: All extremities perfused. IMAGING AND LABORATORY DATA: White blood cell count is normal, hematocrit is normal, platelet count is normal. Electrolytes are normal. CT scan independently reviewed, and radiology report reviewed. ASSESSMENT AND PLAN: An 78-year-old female with recurrent partial small-bowel obstruction. Recurrent small-bowel obstruction. At this time, I think she has a stricture down in her anastomosis from her previous surgery. Will get a delayed contrasted CT scan to see if it is moving through. I did discuss with Dr. Bhakta, who is the radiologist on-call. Otherwise, will continue supportive care and monitor. cc: Bradley Day MD
[2019-08-13] MEDS: PROTONIX IV SCH (08:34)
[2019-08-13] MEDS: TYLENOL PR PRN (08:34)
[2019-08-13] MEDS: SODIUM CHLORIDE 0.9% INJ SCH (08:34)
[2019-08-13] MEDS: NS 1,000 ML IV SCH ×2 (08:35→22:03)
[2019-08-13] MEDS ORDERED: ZOFRAN IV PRN (09:00)
--- NOTE | 2019-08-13 09:01 | HISTORY AND PHYSICAL ---
PRIMARY CARE PROVIDER: Dr. Jas Deshpande. ONCOLOGIST: Dr. Platt. DATE AND TIME: 08/13/2019 at 0600. HISTORY OF PRESENT ILLNESS: Ms. Novak is an 78-year-old female who was just recently discharged from our facility on 08/10/2019. During this admission, she was treated for a small- bowel obstruction. She does have a previous history of bladder resection and an ileal conduit formation. She also has a history of urinary bladder cancer diagnosed in 2018. She is status post a cystectomy and ileal conduit in 09/2018. The patient has recently found out that she does have a return of her cancer in the lymph nodes that were adjacent and posterior to her bladder. The patient and her daughter report at this time that she is receiving some type of therapeutic infusion that she gets every [address] Platt, though they both report this was not chemotherapy. The patient states since she has been discharged, that she did have return of her symptoms approximately 1 to 2 days ago. She has been reporting nausea, though actually reports that she has not vomited. She is having abdominal pain, which she reports as being in right lower quadrant and left lower back area. The patient states that the back pain that she is having is similar to the pain that she has related to her cancer, though that the lower right lower quadrant pain is new. She was tender in this area upon palpation, as well as in the right upper quadrant. Bowel sounds were hypoactive. She states that she has not been able to pass gas in the past day or so, and that she did not have a bowel movement yesterday, though the 2 days prior to that, she did have a loose, watery diarrhea that was brown in color. She denies any fever, body aches, or chills. She denies any headache, dizziness, chest pain, shortness of breath, or cough. She denies any hematochezia or melena. She denies any urinary symptoms. The patient does have, as previously mentioned, the ileal conduit. She denies any pain, numbness, tingling, or swelling in extremities. Upon evaluation in the ER, laboratory results were pretty unremarkable. Though given her symptoms and past medical history and recent admission for a small-bowel obstruction, I did repeat a CT abdomen and pelvis with IV and oral contrast. Radiology report did show a distal small-bowel obstruction, likely due to adhesions or stricture. Please see full CT report for further detailed findings. The patient was placed inpatient for admission. REVIEW OF SYSTEMS: A 14-point review of systems was conducted with the patient, and all were negative, except for pertinent positives mentioned in the above HPI. PAST MEDICAL HISTORY: History of bladder cancer and gastroesophageal reflux disease. PAST SURGICAL HISTORY: 1. Previous bladder resection. 2. Ileostomy. 3. Hernia repair. 4. Previous bladder sling. SOCIAL HISTORY: The patient has no known history of tobacco, alcohol, or illicit drug use. FAMILY HISTORY: The patient and the patient's daughter report no known family medical history. ALLERGIES: The patient has no known allergies. HOME MEDICATIONS: 1. Mineral oil 30 mL p.o. b.i.d. 2. Revia 50 mg p.o. at bedtime. 3. Systane eyedrops 1 drop to both eyes b.i.d. DIAGNOSTIC DATA: White blood cell count is 6060, hemoglobin 13.7, hematocrit 43.9, platelet count is 267,000. Sodium 140, potassium 4.3, chloride 101, serum bicarb 25, BUN 10, creatinine is 0.5, GFR greater than 60, glucose 115, calcium 10.1. Liver function tests within normal limits. CT abdomen and pelvis with IV and oral contrast did show a distal small-bowel obstruction, likely due to adhesions or stricture. Please see full CT report for further detailed findings. PHYSICAL EXAMINATION: VITAL SIGNS: Temperature 98.4 degrees, heart rate 92, respirations 18, blood pressure is 141/89, oxygen saturation is 97% on room air. GENERAL: Ms. Novak is a pleasant, 78-year-old, female. She was resting in the ER stretcher. She was in no acute distress. She was awake, alert, and able to answer questions appropriately. HEENT: Head is atraumatic, normocephalic. Pupils are equal, round, reactive to light, were 3 mm bilaterally and brisk. Oral mucosa was moist. Oropharynx clear. NECK: Supple. Trachea midline. CARDIOVASCULAR: The patient has S1 and S2 present. No murmurs, gallops, or rubs appreciated, with a regular rate and rhythm. PULMONARY: The patient has symmetrical chest expansion bilaterally. Lung sounds are clear to auscultation in bilateral full stevens. ABDOMEN: Soft, though does appear to be maybe slightly distended. She does report tenderness in the right upper quadrant and right lower quadrant area. Bowel sounds were present. They were hypoactive. The patient does have a urine drainage bag noted to right lower abdomen. She does have an ostomy there secondary to an ileal conduit. There is no erythema, warmth, or drainage noted to this site. EXTREMITIES: No cyanosis or edema noted. Pulse, motor, and sensory were intact in all extremities. Radial and pedal pulses were 2+ bilaterally. INTEGUMENTARY: The patient's skin is pink, warm, dry. NEUROLOGICAL: The patient is alert and oriented to person, place, time, and situation. She is able to move all extremities. There were no focal neurological deficits noted. ASSESSMENT AND PLAN: 1. Small-bowel obstruction. For this, will place the patient nothing by mouth. Will provide gentle intravenous fluid hydration. We will also treat her with antiemetics of Zofran. We have placed a consult with Dr. Day with Surgery. Will await his evaluation and further recommendations for management. 2. History of bladder cancer in 2018, status post cystectomy and ileal conduit in 09/2018. The patient reports that she has recently been diagnosed with lymph node involvement of the lymph nodes that were adjacent to the bladder posteriorly. She is followed by Dr. Platt for this, though she reports she is not receiving any chemotherapy treatment at this time. 3. Nausea. Will continue with antiemetics as mentioned above. 4. Deep vein thrombosis prophylaxis will be provided with sequential compression devices. The patient has been placed on the surgical floor with telemetry. She will have vital signs every 8 hours. Will do strict intake and output. Will repeat a CBC and renal profile tomorrow. Further orders and recommendations pending hospital course, diagnostic studies, and physician evaluation. Dictated by TONIA Patterson for Cameron Flores MD cc: Cmaeron Flores MD Patient presenting with Small bowel obstruction. Has a history of cystectomy with ileal conduit. I agree with the assessment and plan of the TIRE SORTER. Dr. Sandra ULRICH
--- NOTE | 2019-08-13 14:02 | Diag Imaging Result Doc PS360 ---
EXAM: CT ABD/PELVIS W/ORAL CONT ONLY 08/13/2019 HISTORY: follow up contrast TECHNIQUE: This exam was performed using automated exposure control, adjustment of mA or kV according to patient size, and/or use of iterative reconstruction technique. COMMENT: There are some fibrotic changes in the lung bases which have not changed since 08/13/2019 at 0436. There is oral contrast throughout the small bowel there is contrast in the cecum and ascending colon. There is contrast excretion in the urinary collecting systems. There is less fecal is aeration of bowel contents proximal to the area of the staple line seen on the previous study. There is an apparent stricture which is visible on image 129 of the current examination. There is fluid in the ostomy sac which was not demonstrated at the time the previous examination. There is also a mild degree of free fluid in the pelvis. IMPRESSION: Improved partial small bowel obstruction. Minimal ascites. Electronically signed by Rigoberto Bhakta 08/13/2019 1:59 PM
[2019-08-13] MEDS: SYSTANE EYE DROPS BOTH EYES SCH ×2 (20:54→22:03)
[2019-08-14] MEDS ORDERED: OFIRMEV 1000 MG/ISOTONIC SOLN 1,000 MG/100 ML BOTTLE IV ONE (03:28)
[2019-08-14] MEDS: D5 1/2 NS 1,000 ML IV SCH ×3 (03:36→16:35)
[2019-08-14] MEDS: PROTONIX IV SCH (06:31)
[2019-08-14] MEDS: SODIUM CHLORIDE 0.9% INJ SCH (06:31)
--- NOTE | 2019-08-14 07:07 | GENERAL SURGERY PROGRESS NOTE ---
DATE: 08/14/2019 SUBJECTIVE: Patient seems to be doing okay. She is not as uncomfortable. Reviewed repeat CT scan. It does look like she has a stricture at her anastomosis. OBJECTIVE: Vital Signs: Patient is currently afebrile. Her vital signs are stable. General: No acute distress. HEENT: Normocephalic and atraumatic. Pupils equal, round, and reactive to light. Mucous membranes moist. Oropharynx benign. Neck: Supple. Trachea midline. Cardiovascular: Regular rate and rhythm. Lungs: Grossly clear. Abdomen: Soft, nontender, nondistended. Extremities: Moves all extremities. Neurologic: Grossly intact. Skin: No signs of jaundice. Vascular: All extremities perfused. LABORATORY: None this morning as of yet. CT scan as noted above. ASSESSMENT AND PLAN: An 78-year-old female with recurrent partial small bowel obstruction. Recurrent partial small bowel obstruction. At this time, it is related to a stricture I believe from a previous anastomosis. At this point, I offered the patient 3 options. The first option is staying on a liquid diet, and adding Ensure, and seeing how she does. Option #2 would be exploratory laparotomy here at [facility] with a revision of that anastomosis. Option 3 would be transfer to [facility] for an opinion and potential surgery there. At this point, she wants to try the liquids and see how she does. We will continue to monitor while she is in the hospital. cc: Bradley Day MD
[2019-08-14 07:15] LABS: HEMATOCRIT 38.4 % (37.0-47.0); MCH 31.1 PG (27-31); MCHC 31.3 g/dL (33-37); MCV 99.5 FL (81-99); MPV 8.9 FL (7.4-10.4); RBC 3.86 XMIL (4.2-5.4); RDW 12.3 % (11.5-14.5); WBC 5.12 X1000 (4.8-10.8)
[2019-08-14 07:48] LABS: AGAP 9; ALBUMIN 3.4 g/dL (3.5-5.0); BUN 5 mg/dL (8-22); CHLORIDE 104 mmol/L (98-107); COSMO 275; CREATININE 0.5 mg/dL (0.5-0.9); ESTIMATED GFR > 60; GLUCOSE 104 mg/dL (70-104); PHOSPHORUS 2.9 mg/dL (2.7-4.5); SODIUM 139 mmol/L (136-145); TCO2 26 mmol/L (25-35)
[2019-08-14] MEDS: SYSTANE EYE DROPS BOTH EYES SCH ×2 (08:38→20:35)
--- NOTE | 2019-08-14 09:11 | Diag Imaging Result Doc PS360 ---
EXAM: ABDOMEN FLAT/UPRIGHT HISTORY: obstruction TECHNIQUE: Flat and upright with chest COMPARISON: 08/09/2019 FINDINGS: The lungs are well expanded. No consolidation. No cardiomegaly. No free air beneath the diaphragm. There is contrast throughout the colon. There are air distended loops of small bowel in the midabdomen similar to the prior study. Surgical clips and sutures overlying the pelvis. No organomegaly. Mild scoliosis with degenerative spine changes. IMPRESSION: Persistent partial small bowel obstruction Electronically signed by Sammy Boswell 08/14/2019 9:09 AM
--- NOTE | 2019-08-14 18:13 | HEMO/ONC CONSULTATION ---
DATE: 08/14/2019 REASON FOR CONSULTATION: This is a known patient of ours for the treatment of metastatic high- grade urothelial bladder cancer. HISTORY OF PRESENT ILLNESS: Mrs. Novak is an 78-year-old female who is currently in our clinic for the treatment of metastatic bladder carcinoma. The patient is currently receiving treatment with Keytruda every 3 weeks. Her last dose was on 08/04/2019. The patient's most recent PET scan showed metastatic disease within multiple retroperitoneal lymph nodes, upper thoracic paraesophageal lymph node, with extensive right pelvic sidewall leon involvement and possible direct extension into the adjacent uterus. Patient was most recently admitted to the hospital on 08/07 for a small bowel obstruction. She was discharged on 08/10/2019. Since her discharge, the patient has had a return of her symptoms, approximately 1 to 2 days ago. She reports nausea without vomiting, abdominal pain in the right lower quadrant and left lower back area. The pain in her back is similar to her cancer pain. The patient states she has not been able to pass gas in the past day and that she did not have a bowel movement yesterday, though 2 days prior, she had a loose, watery diarrhea. She does not have any urinary symptoms at this time. Abdomen and pelvis CT in the ER showed another partial or early small bowel obstruction again. PAST MEDICAL HISTORY: 1. Metastatic bladder carcinoma. 2. GERD. PAST SURGICAL HISTORY: 1. Bladder resection. 2. Ileostomy. 3. Hernia repair. 4. Previous bladder sling. SOCIAL HISTORY: The patient does not smoke, drink alcohol, or any illicit drug use. ALLERGIES: Patient has no known drug allergies. HOME MEDICATIONS: Mineral oil, ReVia, Systane eye drops. REVIEW OF SYSTEMS: Pertinent positives are noted in the HPI. All other ROS negative. VITAL SIGNS: Temperature 98.5 degrees, pulse rate 79, respiratory rate 18, blood pressure 143/68, O2 saturation 98% on room air, 0/10 pain. PHYSICAL EXAMINATION: General: The patient is in no acute distress. HEENT: Sclerae is anicteric. PERRLA. Oral mucosa is normal. Cardiovascular: Normal S1, S2. Regular rate and rhythm. Respiratory: Lungs are clear to auscultation. Abdomen: Soft, nontender, nondistended. Extremities: Moves all extremities at will. No lower extremity edema noted. Neurological: No focal motor deficits noted. Awake, alert, oriented x3. LABORATORY: WBC 5.12, hemoglobin 12.0, hematocrit 38.4, platelet count 219,000. RADIOLOGY: Abdominal x-ray today, persistent partial small bowel obstruction. ASSESSMENT AND PLAN: 1. Small bowel obstruction. The patient is currently on clear fluids and doing well with this. Continue conservative management at this time. Continue medical management per Surgery. 2. Metastatic bladder carcinoma. The patient's most recent PET scan showed extensive metastatic disease. The patient is currently on immunotherapy with Keytruda every 3 weeks. Last dose 08/04/2019. 3. Deep vein thrombosis prophylaxis. Patient is on sequential compression devices. Please encourage the patient to get out of bed multiple times daily and to do her exercises while in the hospital. Dictated by TONIA Barney for Ankit Platt MD Patient seen and examined. As above. Admitted with small bowel obstruction. Daughter has been in touch with [facility] and they would like to go to [facility] if symptoms do not improve. Prognosis is not good as far as her bladder cancer is concerned. Ankit Platt MD cc: Ankit Platt MD [facility]
--- NOTE | 2019-08-14 19:06 | Diag Imaging Result Doc PS360 ---
CHEST-1 VIEW - 08/14/2019 INDICATION: after ngt has been placed COMPARISON: 08/09/2019 FINDINGS: The nasogastric tube is in the hiatal hernia and probably extends into the body of the stomach below the hemidiaphragm. This could be advanced somewhat. IMPRESSION: There is gastric tube is in the stomach, however could be advanced somewhat to be fully within the stomach below the diaphragm. Electronically signed by Guillermo Espinoza 08/14/2019 7:04 PM
[2019-08-14] MEDS: LOVENOX SUBQ SCH (20:35)
--- NOTE | 2019-08-14 21:27 | PROGRESS NOTE ---
DATE: 08/14/2019 SUBJECTIVE: The patient is resting comfortably in bed. Her daughter is present at the bedside. The patient reports the she does not feel nauseous. She had 1 bowel movement. OBJECTIVE: Vital Signs: Temperature 98.3 degrees, blood pressure 143/68, heart rate 79, respirations 18, O2 saturation 98% on room air. General: This is a chronically ill-appearing elderly female lying in bed in no acute distress. Heart: S1, S2 normal. Regular rate and rhythm. Lungs: Equal air entry bilaterally. No wheezing, no rales, no rhonchi. Abdomen: Positive bowel sounds. Soft, nontender, nondistended. Extremities: No edema, no cyanosis, no calf tenderness. Neurologic: The patient is alert and oriented x4. LABORATORY DATA: White blood cell count 5.1, hemoglobin 12, hematocrit 38, platelets 219,000. Sodium 139, potassium 4, chloride 104, CO2 26, BUN 5, creatinine 0.5, glucose 104, albumin 3.4. Abdominal x-ray shows a persistent partial small bowel obstruction. ASSESSMENT AND PLAN: 1. Persistent partial small bowel obstruction. The patient and her daughter have requested transfer to [facility]. I discussed the case with the on-call surgeon at [facility] Dr. Vale Carlson. She stated to have an NG tube placed to decompress the patient's bowel and to do a repeat x-ray tomorrow to check the patient's progress. She stated that she would call to follow up and see how the patient is doing tomorrow. She states that if the patient's small bowel obstruction improved that she would recommend that the patient follow up with Dr. Saul Alvarez as outpatient for further discussion. Repeat x-ray has been ordered for tomorrow and an nasogastric tube has been placed. 2. History of bladder carcinoma status post radical cystectomy with ileal conduit formation. Aware. Dr. Platt is following. 3. Deep vein thrombosis prophylaxis. Continue on Lovenox. cc: Yazmin Aparicio MD [facility]
[2019-08-15] MEDS: D5 1/2 NS 1,000 ML IV SCH ×4 (03:28→19:59)
--- NOTE | 2019-08-15 04:24 | PROGRESS NOTE ---
DATE: 08/14/2019 MTDD
[2019-08-15] MEDS ORDERED: VANCOMYCIN 1,550 MG in NS 250 ML IV ONE (06:00)
[2019-08-15] MEDS ORDERED: VANCOMYCIN IV PER PHARMACY MISC SCH (06:00)
[2019-08-15 06:34] LABS: HEMATOCRIT 41.2 % (37.0-47.0); HEMOGLOBIN 13.1 g/dL (12.0-16.0); MCH 31.6 PG (27-31); MCHC 31.8 g/dL (33-37); MCV 99.3 FL (81-99); MPV 9.1 FL (7.4-10.4); RBC 4.15 XMIL (4.2-5.4); RDW 12.1 % (11.5-14.5); WBC 6.02 X1000 (4.8-10.8)
[2019-08-15] MEDS ORDERED: OFIRMEV 1000 MG/ISOTONIC SOLN 1,000 MG/100 ML BOTTLE IV ONE (06:34)
[2019-08-15] MEDS: SODIUM CHLORIDE 0.9% INJ SCH (06:57)
[2019-08-15] MEDS: PROTONIX IV SCH (06:57)
[2019-08-15 07:07] LABS: AGAP 5; ALBUMIN 3.6 g/dL (3.5-5.0); BUN 4 mg/dL (8-22); CALCIUM 9.4 mg/dL (8.8-10.2); CHLORIDE 102 mmol/L (98-107); COSMO 272; CREATININE 0.6 mg/dL (0.5-0.9); ESTIMATED GFR > 60; GLUCOSE 119 mg/dL (70-104); PHOSPHORUS 2.9 mg/dL (2.7-4.5); SODIUM 137 mmol/L (136-145); TCO2 30 mmol/L (25-35)
--- NOTE | 2019-08-15 08:24 | GENERAL SURGERY PROGRESS NOTE ---
DATE: 08/15/2019 SUBJECTIVE: Patient seems to be doing okay. Dr. Aparicio talked with the [facility]. They are willing to accept the patient. The patient has requested to potentially go there since she has had previous surgery there. [facility] did requested to have an NG tube placed. The patient is doing fine. She is having bowel movements. She is actually requesting to have her NG tube removed. OBJECTIVE: Vital Signs: Patient is currently afebrile. Her vital signs are stable. General: No acute distress. HEENT: Normocephalic, atraumatic. Pupils equal, round, reactive to light. Mucous membranes moist. Oropharynx benign. Neck: Supple. Trachea midline. Cardiovascular: Regular rate and rhythm. Lungs: Grossly clear. Abdomen: Soft, nondistended, nontender. Some bowel sounds auscultated. Extremities: Moves all extremities. Neurologic: Grossly intact. Skin: No signs of jaundice. Vascular: All extremities perfused. LABORATORY DATA: None this morning as of yet. ASSESSMENT AND PLAN: An 78-year-old female with recurrent small-bowel obstruction. Recurrent small bowel obstruction. At this time, continue current treatment and again, the patient has requested to potentially go to [facility]. We will see what kind arrangements can be made, but in the meantime, we will follow her. Per [facility]'s request, the NG tube has been placed but I think she does have some return of bowel function, but will defer to [facility]'s request. cc: MD SERG Heaton
[2019-08-15] MEDS: SYSTANE EYE DROPS BOTH EYES SCH ×3 (09:30→23:34)
--- NOTE | 2019-08-15 09:32 | Diag Imaging Result Doc PS360 ---
ABDOMEN FLAT/UPRIGHT - 08/15/2019 INDICATION: obstruction COMPARISON: 08/14/2019 FINDINGS: No change in the slightly abnormal small bowel loops in the left abdomen and left side of the pelvis. Stable surgical clips and suture lines in the pelvis. No free air. Nasogastric tube in the stomach. There has been poor transit of contrast throughout the colon. IMPRESSION: No change from prior. Very poor transit of contrast through the colon. Abnormal but nonspecific small bowel gas pattern. Electronically signed by Guillermo Espinoza 08/15/2019 9:30 AM
--- NOTE | 2019-08-15 15:16 | DISCHARGE SUMMARY ---
ADMISSION DATE: 08/13/2019 DISCHARGE DATE: 08/15/2019 Patient admitted on 08/13/2019, transferred to [facility] on 08/15/2019. Her family physician, I think is Jas Landon. Her urologist is Dr. Ruben Singh, oncologist, Dr. Platt. This is an 78-year-old female, just recently discharged from our facility on 08/10/2019. During this admission, she is treated for small-bowel obstruction. She does have a previous history of bladder resection and ileal conduit, history of urinary bladder cancer diagnosed 2018. She is status post cystectomy and ileal conduit on 09/29/2018. Recently found out she did have return of her cancer, no lymph nodes, which were adjacent and posterior to her bladder. The patient and her daughter report at this time she was receiving some type of therapeutic infusion and gets that every [address] Platt. They report that this was not chemotherapy, though. The patient reports that since discharge, the symptoms returned about 2 days ago and reporting nausea, though actually reports that she has not vomited, having abdominal discomfort, abdominal distention in the right lower quadrant, left lower back area. She was tender on exam. Bowel sounds were hypoactive. She has not been able to pass gas. She did not have a bowel movement the day before, though 2 days prior to that, she did have loose watery stool which was brown in color. Denied fever, body aches or chills. PAST MEDICAL HISTORY: Reviewed again. 1. Previous bladder resection. 2. Ileostomy. 3. Hernia repair. 4. Previous bladder sling. SURGICAL HISTORY: Is as above. ADMISSION DIAGNOSIS: 1. Small bowel obstruction. The patient was held NPO, given some IV fluids. 2. History of bladder cancer in 2018, status post cystectomy and ileal conduit on 11/30/2017. The patient reports she has recently been diagnosed with lymph node involvement, and she is receiving therapy per Dr. Platt. Abdominal and pelvic CT on 08/13, improved partial small bowel obstruction. Minimal ascites. General surgery was asked to see and felt she had recurrent small-bowel obstruction, partial small-bowel obstruction. [place] it was related to a stricture from previous anastomosis. He really offered 3 options. One is to stay on a liquid diet and add Ensure and see how we do. Option 2 was to do an exploratory laparotomy and maybe revision of anastomosis. Option 3 was to go to [place] for an opinion where she had her surgery done. She wanted to go to [place]. Dr. Platt followed as well. She has metastatic bladder cancer. Most recent PET scan showed extensive metastatic disease, currently on immunotherapy with Keytruda every 3 weeks. Last dose was on 08/02/2019. She had an NG tube placed. She did feel a little better as far as the nausea went. Abdominal x-ray today, no change from prior. Very poor transit of contrast through the colon so plan is for her to go to [place]. Dr. Day has discussed this with surgery. DISCHARGE: Discharged her on her current medicines, Tylenol 650 mg per rectum q. 6 hours p.r.n. fever, pain, Protonix 40 mg IV q. 24 hours, continue her propylene eyedrops and she is getting vancomycin 1250 mg every 36 hours. She had a urine culture that grew out Enterococcus faecalis and Pseudomonas aeruginosa and I believe she has a Bose catheter in place. cc: Med Carver MD
[2019-08-15] MEDS: LOVENOX SUBQ SCH ×2 (19:57→23:34)
[2019-08-15] MEDS: TYLENOL PR PRN (19:58)
[2019-08-16] MEDS: D5 1/2 NS 1,000 ML IV SCH ×3 (04:12→17:45)
--- NOTE | 2019-08-16 06:18 | GENERAL SURGERY PROGRESS NOTE ---
DATE: 08/16/2019 SUBJECTIVE: Discussed the case with patient's urologist in [place], Dr. Saul Alvarez. He is willing to accept the patient. At this point, awaiting transport to [place]. OBJECTIVE: Vital Signs: Patient is currently afebrile. Her vital signs are stable. General: No acute distress. HEENT: Normocephalic, atraumatic. Pupils equal, round, and reactive to light. Mucous membranes moist. Oropharynx benign. Neck: Supple. Trachea midline. Cardiovascular: Regular rate and rhythm. Lungs: Grossly clear. Abdomen: Soft. Less distended and nontender. Extremities: Moves all extremities. Neurologic: Grossly intact. Skin: No signs of jaundice. Vascular: All extremities perfused. LABORATORY: None this morning as of yet. ASSESSMENT AND PLAN: An 78-year-old female with a recurrent partial small bowel obstruction. Recurrent small bowel obstruction. At this time, we are awaiting transfer to [place]. I think she probably needs revision of her previous anastomosis. cc: Bradley Day MD
[2019-08-16 07:46] LABS: AGAP 1; ALBUMIN 3.8 g/dL (3.5-5.0); BUN 4 mg/dL (8-22); CALCIUM 9.7 mg/dL (8.8-10.2); CHLORIDE 100 mmol/L (98-107); COSMO 270; CREATININE 0.6 mg/dL (0.5-0.9); ESTIMATED GFR > 60; GLUCOSE 115 mg/dL (70-104); PHOSPHORUS 2.8 mg/dL (2.7-4.5); POTASSIUM 3.9 mmol/L (3.5-5.1); SODIUM 136 mmol/L (136-145); TCO2 35 mmol/L (25-35)
[2019-08-16] MEDS: PROTONIX IV SCH (10:28)
[2019-08-16] MEDS: SODIUM CHLORIDE 0.9% INJ SCH (10:28)
[2019-08-16] MEDS: SYSTANE EYE DROPS BOTH EYES SCH ×2 (13:56→20:55)
--- NOTE | 2019-08-16 14:04 | PROGRESS NOTE ---
DATE: 08/16/2019 SUBJECTIVE: Ms. Novak is comfortable. She says her abdomen is a little softer but she says it seems to fluctuate. She has no nausea this morning. Still has an NG tube in. OBJECTIVE: Temperature 98.3 degrees, pulse 98, respirations 16, blood pressure 150/78. Pupils are equal and round. Lungs are clear in all lung stevens. Cardiovascular Examination: Regular rhythm and rate without murmur or S3. Abdomen is soft. Skin is warm and dry. ASSESSMENT/PLAN: 1. An 78-year-old female with recurrent partial small bowel obstruction, awaiting transfer to [place], waiting on a bed. Dr. Day suspects probably needs revision of previous anastomosis. 2. Previous bladder resection with an ileal pouch. She has had hernia repair before and previous bladder sling. cc: Med Carver MD
[2019-08-16] MEDS: VANCOMYCIN 1,250 MG in NS 250 ML IV SCH (17:45)
[2019-08-16] MEDS: LOVENOX SUBQ SCH (20:15)
[2019-08-17] MEDS: D5 1/2 NS 1,000 ML IV SCH ×3 (02:55→20:17)
[2019-08-17 07:27] LABS: AGAP 11; ALBUMIN 3.5 g/dL (3.5-5.0); BUN 6 mg/dL (8-22); CALCIUM 9.5 mg/dL (8.8-10.2); CHLORIDE 101 mmol/L (98-107); COSMO 276; CREATININE 0.6 mg/dL (0.5-0.9); ESTIMATED GFR > 60; GLUCOSE 114 mg/dL (70-104); POTASSIUM 3.7 mmol/L (3.5-5.1); SODIUM 139 mmol/L (136-145); TCO2 27 mmol/L (25-35)
--- NOTE | 2019-08-17 09:32 | PROGRESS NOTE ---
DATE: 08/17/2019 SUBJECTIVE: Ms. Novak feels like her abdomen is a little more distended than yesterday, but no nausea. She would like to get up out of bed and walk some. She still has NG tube in place, still waiting on a bed at [facility]. OBJECTIVE: Vital Signs: Temperature 98.1 degrees, pulse 76, respirations 18, blood pressure 134/57. HEENT: Pupils are equal and round. Lungs: Clear in all lung stevens. Cardiovascular: Regular rhythm and rate without murmur or S3. Urine output is 3700 mL. ASSESSMENT AND PLAN: 1. An 78-year-old with recurrent partial small bowel obstruction. Awaiting transfer to [facility]. Has NG tube in place. Clinically feels a little bit better. We will get physical therapy to help and ambulate a little bit, I think at her request. 2. Previous bladder resection with ileal pouch. Has had hernia before and a previous bladder sling placement. cc: Med Carver MD
--- NOTE | 2019-08-17 10:05 | GENERAL SURGERY PROGRESS NOTE ---
DATE: 08/17/2019 SUBJECTIVE: Patient seems to be doing okay, still waiting transfer to [facility]. OBJECTIVE: Vital Signs: Patient is currently afebrile. Her vital signs are stable. General: No acute distress. Cardiovascular: Regular rate and rhythm. Lungs: Grossly clear. Abdomen: Soft, nontender, nondistended. ASSESSMENT AND PLAN: An 78-year-old female with resolving partial small bowel obstruction. Partial small bowel obstruction. At this time, removed her NG tube yesterday and gave her clear liquid. She seems to be doing okay with that. We will still await transfer to [facility] because I think she needs revision of her anastomosis. cc: Bradley Day MD
[2019-08-17] MEDS: PROTONIX IV SCH (10:15)
[2019-08-17] MEDS: SYSTANE EYE DROPS BOTH EYES SCH ×2 (10:16→20:16)
[2019-08-17] MEDS: SODIUM CHLORIDE 0.9% INJ SCH (10:16)
[2019-08-17] MEDS: LOVENOX SUBQ SCH (20:17)
[2019-08-18] MEDS: D5 1/2 NS 1,000 ML IV SCH ×3 (00:49→17:22)
--- NOTE | 2019-08-18 06:42 | GENERAL SURGERY PROGRESS NOTE ---
DATE: 08/18/2019 SUBJECTIVE: Patient seems to be doing okay. She is still in limbo as far as bed availability at [facility]. The patient seems to be tolerating her clear liquid diet and passing gas. OBJECTIVE: Vital Signs: Patient is currently afebrile. Her vital signs are stable. General: No acute distress. HEENT: Normocephalic, atraumatic. Pupils equal, round, and react to light. Mucous membranes moist. Oropharynx benign. Neck: Supple. Trachea midline. Cardiovascular: Regular rate and rhythm. Lungs: Grossly clear. Abdomen: Soft, nontender, and nondistended. Extremities: Moves all extremities. Neurologic: Grossly intact. Skin: No signs of jaundice. Vascular: All extremities perfused. LABORATORY: Reviewed from yesterday. ASSESSMENT AND PLAN: An 78-year-old female with resolving partial small bowel obstruction. Partial small bowel obstruction. At this time, she seems to be doing okay. We will put her on a full liquid diet. I think she probably needs to stay on something liquid. We will keep her on Ensure. We will wait transfer to [facility]. Would like to monitor her again because the last time she was in the hospital she improved, and then was discharged, and then came back 2 days later so we would like to make sure she is really making improvement before we commit her to a discharge. cc: Bradley Day MD
[2019-08-18] MEDS: SYSTANE EYE DROPS BOTH EYES SCH ×2 (09:01→21:41)
--- NOTE | 2019-08-18 09:18 | PROGRESS NOTE ---
DATE: 08/18/2019 SUBJECTIVE: Ms. Novak is going to be tried on a little bit of food. She had a small bowel movement yesterday. She feels a little better. She did ambulate some yesterday as well. They do not have a bed yet at [facility]. OBJECTIVE: Vital Signs: Temperature 98.3 degrees, pulse 69, respirations 19, blood pressure 125/58. Eyes: Pupils are equal and round. Lungs: Clear in all lung stevens. Cardiovascular exam: Regular rhythm and rate without murmur or S3. : Urine output was 2300 mL. ASSESSMENT AND PLAN: 1. Resolving partial small bowel obstruction. She seems to be doing okay. I am going to put her on a full liquid diet. She is still on Ensure, awaiting a transfer to [facility]. Nasogastric tube is out. 2. Previous bladder resection with ileal pouch, and she has had hernia repair as well and a previous bladder sling placement. Review of her orders: She is on Protonix 40 mg IV q. 24 hours. I think we can change that to p.o., and I think we can stop her vancomycin. Urine did grow out Enterococcus faecalis and Pseudomonas, so maybe continue vancomycin another 24 hours. Lab on the unremarkable. Electrolytes from yesterday unremarkable. cc: Med Carver MD
[2019-08-18] MEDS: VANCOMYCIN 1,250 MG in NS 250 ML IV SCH (11:15)
[2019-08-18] MEDS ORDERED: DULCOLAX PR PRN (12:09)
[2019-08-18] MEDS: TYLENOL PR PRN (18:36)
[2019-08-18 20:18] VITALS: BP 165/75
[2019-08-18] MEDS: LOVENOX SUBQ SCH (21:43)
[2019-08-19] MEDS ORDERED: PROTONIX PO SCH (07:00)
--- NOTE | 2019-10-20 14:13 | DISCHARGE SUMMARY ---
ADMISSION DATE: 08/13/2019 DISCHARGE DATE: 08/18/2019 PHYSICIAN: Dr. Ruben Singh. FAMILY PRIMARY CARE DOCTOR: Dr. Jas Deshpande. ONCOLOGIST: Dr. Platt. HISTORY OF PRESENT ILLNESS: Ms. Novak is an 78-year-old female, just recently discharged from our facility on 08/10/2019, treated for small bowel obstruction. She has previously had a history of bowel resection and ileal conduit formation and history of urinary bladder cancer diagnosed in 2018, status post cystectomy, ileal conduit on 09/29/2018. Recently found she does have return of her cancer with lymph nodes that are adjacent posterior to the bladder. The patient and her daughter report receiving some type of therapeutic infusion she gets every [address] Platt, though they both report this was not chemotherapy. Patient states that since she has been discharged, she did have return of her symptoms approximately 1 to 2 days ago. Reported nausea, though actually reports that she has not vomited, having abdominal discomfort and bloating. Reports having pain in mainly the right lower quadrant, left lower back area. States that the back pain she is having is similar to the pain that was related to her cancer, although that right lower quadrant pain is new. She was tender on palpation and she was unable to pass gas. She has not had a bowel movement in about 36 hours. Two days prior to that, she did have some watery diarrhea, brown in color. Denies any fever, body aches or chills. Denies any headache, dizziness, chest pain, shortness of breath or cough. PAST MEDICAL HISTORY: 1. Previous bladder resection. 2. Ileostomy. 3. Hernia repair. 4. Previous bladder sling. ADMISSION DIAGNOSES: 1. Small bowel obstruction. 2. History of bladder cancer in 2018, status post cystectomy and ileal conduit on 09/29/2018. HOSPITAL COURSE: So, she was started on fluids. General surgery, Dr. Christiano Day was involved. Got a delayed contrast CT. Dr. Platt was following. Abdominal x-ray on 08/15/2018 showed no change, nonspecific small bowel gas pattern. She did not have a repeat abdominal CT I do not see. With the complications, Dr. Day discussed with Jas Landon and her urologist, Dr. Ruben Singh. She had been recently discharged from our facility, during this admission treated for small bowel obstruction. She does have previous history of bowel resection and ileal conduit, history of urinary bladder cancer diagnosed in 2018, status post cystectomy and ileal conduit on 09/29/2018. I found out she did have return of her cancer, in lymph nodes which were adjacent and posterior to her bladder. The patient and her daughter report that she is receiving some type of therapeutic infusion that she gets about every [address] Platt. Because of her complications and her ileal conduit, the patient and Dr. Day wanted to see if we could transfer her to [facility] to see if she needed further surgery. The PET scan did show extensive metastasis, currently on immunotherapy with Keytruda every 3 weeks, last dose on 08/02/2019. She had an NG tube placed. Very poor transit of contrast through the colon, so she was transferred to [facility]. They did not have a bed so we waited a couple of days, but she was transferred on 08/18/2019. cc: Med Carver MD
== END 2019-08-18 23:03 | disposition short-term general hospital (02) | DRG 389 ==
LOC: ED 02:46 → SUATTDRO 07:27 → 4N 07:27
PROVIDERS: ATTEND Emergency Medicine